=== PATIENT | male | born 1960 | race American Indian/Alaskan Native ===

== ENCOUNTER 2019-04-10 18:49 | Emergency (ER) | payer MEDICAID ==
--- NOTE | 2019-04-10 19:06 | Event Note ---
ED Screening Note ED Screening Note: PMHx CHF and pancreatitis, HTN states he has epigastric abd pain and chest pain dull ache N/V since yesterday no diarrhea +SOB former smoker, quit 2 weeks former drinker, quit 2 weeks ago no drug use This initial assessment/diagnostic orders/clinical plan/treatment(s) is/are subject to change based on patients health status, clinical progression and re- assessment by fellow clinical providers in the ED. Further treatment and workup at subsequent clinical providers discretion. Patient/guardian urged not to elope from the ED as their condition may be serious if not clinically assessed and managed. Initial orders include: CP protocol
[2019-04-10 19:36] LABS: Basophils # (Auto) 0.1 K/mm3 (0.0-0.1); Basophils % (Auto) 1.3 % (0.0-1.8); Eosinophils % (Auto) 0.4 % (0.0-4.3); Hematocrit 45.6 % (35.5-45.6); Hemoglobin 15.7 gm/dl (11.8-15.2); Lymphocytes # (Auto) 2.7 K/mm3 (1.2-5.4); Lymphocytes % (Auto) 32.6 % (13.4-35.0); Mean Corpuscular HGB Conc 34 % (32-34); Mean Corpuscular Volume 101 fl (84-94); Monocytes # (Auto) 0.9 K/mm3 (0.0-0.8); Monocytes % (Auto) 10.7 % (0.0-7.3); Platelet Count 178 K/mm3 (140-440); Red Blood Count 4.52 M/mm3 (3.65-5.03); Red Cell Distribution Width 14.4 % (13.2-15.2)
--- NOTE | 2019-04-10 19:42 | XRay Report ---
CHEST 2 VIEWS INDICATION / CLINICAL INFORMATION: Chest Pain. COMPARISON: None available. FINDINGS: SUPPORT DEVICES: None. HEART / MEDIASTINUM: No significant abnormality. LUNGS / PLEURA: No significant pulmonary or pleural abnormality. No pneumothorax. ADDITIONAL FINDINGS: No significant additional findings. IMPRESSION: 1. No acute findings. Signer Name: Abilio Lopez MD Signed: 04/10/2019 7:37 PM Workstation Name: [id number]
[2019-04-10 19:47] LABS: INR 1.06 (0.87-1.13)
[2019-04-10 19:48] LABS: Partial Thromboplastin Time 22.3 Sec. (24.2-36.6)
[2019-04-10 20:05] LABS: Alanine Aminotransferase 18 units/L (7-56); Albumin 4.1 g/dL (3.9-5); BUN/Creatinine Ratio 10; Blood Urea Nitrogen 10 mg/dL (9-20); Calcium 9.1 mg/dL (8.4-10.2); Hemolysis Index 8
[2019-04-10] MEDS ORDERED: NACL 0.9% 1000 ML 1,000 ML IV ONE (20:54)
[2019-04-10] MEDS ORDERED: DILAUDID IV ONE (20:54)
[2019-04-10] MEDS ORDERED: ZOFRAN IV ONE (20:54)
--- NOTE | 2019-04-10 21:12 | Emergency Department Report ---
ED Abdominal Pain HPI - General Chief Complaint: Chest Pain Stated Complaint: CHEST/STOMACH PAIN Time Seen by Provider: 04/10/19 19:04 Source: patient Mode of arrival: Wheelchair Limitations: No Limitations - History of Present Illness Initial Comments: 58-year-old male with history of congestive heart failure and chronic abdominal pain presents to ED with epigastric pain. Patient states he has been having chronic epigastric pain since last year. At that time he began seeing a chicken cleaner. Upper endoscopy was done and patient states he was diagnosed with gastritis. Patient states he has been having episodic pain since then. Patient states this same pain became worse 3 weeks ago. He was seen at [facility] at that time and diagnosed with pancreatitis. Pt denies alcohol use. States current pain began again 1 week ago, feels the same as it did when diagnosed with pancreatitis. States pain is epigastric, radiates into chest and back Severity scale (0 -10): 10 - Related Data Home Medications Medication Instructions Recorded Confirmed Last Taken Aspirin [Aspirin TAB] 325 mg PO DAILY 06/03/14 06/03/14 06/02/14 Carvedilol [Coreg] 12.5 mg PO BID 06/03/14 06/03/14 06/02/14 Lisinopril [Zestril] 40 mg PO QDAY 06/03/14 06/03/14 06/02/14 Oxycodone HCl/Acetaminophen 1 each PO Q6HR PRN 06/03/14 06/03/14 06/01/14 [Percocet 10-325 mg] Trazodone HCl [Trazodone] 600 mg PO HS 06/03/14 06/03/14 06/02/14 Previous Rx's Medication Instructions Recorded Last Taken Type Dicyclomine [Bentyl] 20 mg PO QID PRN #20 tablet 04/10/19 Unknown Rx Ondansetron [Zofran Odt] 4 mg PO Q8HR PRN #20 tab.rapdis 04/10/19 Unknown Rx Allergies Allergy/AdvReac Type Severity Reaction Status Date / Time morphine AdvReac Hives Verified 04/10/19 18:51 nitroglycerin AdvReac Rash Verified 04/10/19 18:51 ED Review of Systems ROS: Stated complaint: CHEST/STOMACH PAIN Other details as noted in HPI ED Past Medical Hx - Past Medical History Previous Medical History?: Yes Hx Hypertension: Yes Hx CVA: Yes Hx Heart Attack/AMI: Yes Hx Congestive Heart Failure: Yes - Surgical History Past Surgical History?: Yes Hx Coronary Stent: Yes (4) Hx Open Heart Surgery: Yes (CABG 2004) Additional Surgical History: Anal fissure repair - Social History Smoking Status: Former Smoker Substance Use Type: None - Medications Home Medications: Home Medications Medication Instructions Recorded Confirmed Last Taken Type Aspirin [Aspirin TAB] 325 mg PO DAILY 06/03/14 06/03/14 06/02/14 History Carvedilol [Coreg] 12.5 mg PO BID 06/03/14 06/03/14 06/02/14 History Lisinopril [Zestril] 40 mg PO QDAY 06/03/14 06/03/14 06/02/14 History Oxycodone HCl/Acetaminophen 1 each PO Q6HR PRN 06/03/14 06/03/14 06/01/14 History [Percocet 10-325 mg] Trazodone HCl [Trazodone] 600 mg PO HS 06/03/14 06/03/14 06/02/14 History Dicyclomine [Bentyl] 20 mg PO QID PRN #20 tablet 04/10/19 Unknown Rx Ondansetron [Zofran Odt] 4 mg PO Q8HR PRN #20 tab.rapdis 04/10/19 Unknown Rx ED Physical Exam - General Limitations: No Limitations ED Course Vital Signs 04/10/19 04/10/19 04/10/19 19:07 20:00 22:00 Temperature 98.7 F Pulse Rate 106 H 92 H Respiratory 14 20 20 Rate Blood Pressure 112/88 128/61 [Right] O2 Sat by Pulse 98 98 99 Oximetry ED Medical Decision Making - Lab Data Result diagrams: 04/10/19 19:18 04/10/19 19:18 - Medical Decision Making - [place] check; pt receiving 30 day supply of percocet 10 mg monthly since Jun 2018; last filled on 03/25/19 - now reports that he is under the care of pain management physician - pt's symptoms seem to be consistent with his chronic abdominal pain - advised f/u with his chicken cleaner - no episodes of emesis while here in ED - vitals stable - return precautions given - Differential Diagnosis pancreatitis, gastritis Critical care attestation.: If time is entered above; I have spent that time in minutes in the direct care of this critically ill patient, excluding procedure time. ED Disposition Clinical Impression: Acute pancreatitis Disposition: TO HOME OR SELFCARE Is pt being admited?: No Condition: Stable Instructions: Pancreatitis (ED), Diet for Ulcers and Gastritis (ED) Prescriptions: Dicyclomine [Bentyl] 20 mg PO QID PRN #20 tablet PRN Reason: abdominal pain Ondansetron [Zofran Odt] 4 mg PO Q8HR PRN #20 tab.rapdis PRN Reason: Vomiting Referrals: PRIMARY CAREMD [Referring] - 3-5 Days [facility] MD JAMILAH [Primary Care Provider] - 3-5 Days Time of Disposition: 22:06
[2019-04-10] MEDS ORDERED: K-DUR PO ONE (22:05)
[2019-04-10 23:19] VITALS: BP 128/61
== END 2019-04-10 22:22 | disposition home or self-care (01) ==
LOC: ED 18:49
DX: K85.90 Acute pancreatitis without necrosis or infection, unspecified (principal); I11.0 Hypertensive heart disease with heart failure; I50.9 Heart failure, unspecified; I25.810 Atherosclerosis of coronary artery bypass graft(s) without angina pectoris; Z86.73 Personal history of transient ischemic attack (TIA), and cerebral infarction without residual deficits; Z87.891 Personal history of nicotine dependence
CPT/HCPCS: 36415; 71046; 80053; 83690; 83735; 83880; 84100; 84484; 85025; 85610; 85730; 93005; 93010; 96374; 96375; 99284; J1170; J2405; J7030